=== PATIENT | male | born 1980 | race Caucasian/White ===

== ENCOUNTER → 2017-01-05 | Outpatient (CLI) | payer MEDICARE, MEDICAID ==
--- NOTE | 2017-01-05 09:37 | XCELERA REPORT ---
[address] [address] Upper Extremity Venous Evaluation Name: EUGENE FLOR JR Age: 36 yrs Gender: Male : 1980 Patient Status: Preadmit Patient Location: Study Date: 01/05/2017 08:51 AM Procedure: Unilateral duplex scan of the left upper extremity veins was performed, including responses to compression and other maneuvers. Reason For Study: LEFT IJV DVT Ordering Physician: FELIX ERICKSON Performed By: Amanda Agosto Left Sided Venous Evaluation Normal vessel filling wall to wall, compression and augmentation as well as Colour flow down to the forearm veins. Interpretation Summary Normal compression, patency, spontaneous and phasic flow of the left upper extremity veins. : FELIX ERICKSON > Pradeep Hale
== END ==
LOC: SP 08:43
PROVIDERS: ATTEND Surgery
DX: I82.409 Acute embolism and thrombosis of unspecified deep veins of unspecified lower extremity (principal)
CPT/HCPCS: 93971

== ENCOUNTER → 2017-02-26 | Outpatient (CLI) | payer MEDICAID, MEDICARE | LOC: RAD 08:05 | PROVIDERS: ATTEND Internal Medicine | DX: C20 Malignant neoplasm of rectum (principal); R91.1 Solitary pulmonary nodule | CPT/HCPCS: 71260; 74177 ==

== ENCOUNTER → 2017-03-22 | Outpatient (CLI) | payer MEDICARE, MEDICAID | LOC: RAD 18:20 | PROVIDERS: ATTEND Internal Medicine | DX: C20 Malignant neoplasm of rectum (principal) | CPT/HCPCS: 78815; A9552 ==

== ENCOUNTER → 2017-05-27 | Outpatient (CLI) | payer MEDICARE, MEDICAID | LOC: OD 07:16 | PROVIDERS: ATTEND Radiology Radiation Oncology | DX: C20 Malignant neoplasm of rectum (principal); C77.5 Secondary and unspecified malignant neoplasm of intrapelvic lymph nodes | CPT/HCPCS: 36415; 82378 ==

== ENCOUNTER 2017-06-10 10:26 | Day surgery (SDC) | payer MEDICARE, MEDICAID ==
--- NOTE | 2017-06-03 12:03 | EKG REPORT ---
SEVERITY:- OTHERWISE NORMAL ECG - SINUS RHYTHM LEFT AXIS DEVIATION : Confirmed by: Lila Dean MD 03-Jun-2017 12:02:33
[~2017-06-10 10:26] MED LIST: ACETAMINOPHEN 325 MG TABLET PO PRN; LACTATED RINGERS 1000 ML IV PRN; LIDOCAINE 0.5% INJ-PF (5 MG/ML) 50 ML SDV SUBCUT PRN
[2017-06-10] MEDS ORDERED: MIDAZOLAM 2 MG/2 ML INJ ONE (12:40)
[2017-06-10] MEDS ORDERED: PROPOFOL INJ 200 MG/20 ML VIAL IV ONE (12:41)
[2017-06-10] MEDS ORDERED: MEPERIDINE HCL/PF INJ 25 MG/1 ML DISP.SYRIN IV PRN (14:04)
[2017-06-10] MEDS ORDERED: FENTANYL CITRATE INJ/PF 100 MCG/2 ML AMPUL IV PRN ×3 (14:04)
[2017-06-10] MEDS ORDERED: PROMETHAZINE HCL INJ 25 MG/1 ML VIAL IV PRN ×2 (14:04)
[2017-06-10] MEDS ORDERED: MORPHINE SULFATE 10 MG/ML INJ IV PRN (14:04)
[2017-06-10] MEDS ORDERED: DIPHENHYDRAMINE HCL 50 MG/ML VIAL IV PRN (14:04)
[2017-06-10] MEDS ORDERED: OXYCODONE-ACETAMINOPHEN 5-325 MG TABLET PO PRN ×2 (14:04)
--- NOTE | 2017-06-10 14:31 | Operative Report ---
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 Plan and surgical timeout were conducted The patient was placed in the left lateral decubitus position with knees to chest. A perianal examination was performed. There was no visible or palpable anorectal pathology. Sphincter tone was felt to be normal. The flexible adult colonoscope was advanced through the anal rectal canal, all the way to the cecum. Utilization of the cecum was achieved and the ileocecal valve, the appendiceal orifice and transillumination of the anterior abdominal wall. Of note this was an incomplete bowel prep so there was a significant amount of liquid brown and particulate stool. Approximately 1-1/2 L of saline was used to irrigate, and suction our way through the entire colon. Therefore this would be considered a limited study. However no obvious large tumors or malignancies were identified. Specifically at the colorectal anastomosis which was approximately at 10 cm from the anal verge there was no gross evidence of tumor recurrence. Multiple suture olvin visualized at the anastomosis and photographs taken. One cold forceps biopsy was obtained of the rectal side of the colorectal anastomosis. Of note there was no evidence of stricture but only some narrowing of the anastomosis. Complete visualization of the rectum was achieved with photodocumentation. The scope was withdrawn to the patient's anus. The patient tolerated the procedure well and was taken to the recovery area in stable condition. Because of the limited nature of this colonoscopy, and accelerated surveillance colonoscopy in approximately 6 months is recommended.
--- NOTE | 2017-06-10 14:32 | PDOC DISCHARGE SUMMARY ---
Discharge Summary (SDC) - Discharge Final Diagnosis: History rectosigmoid colon cancer, status post low anterior resection Date of Surgery: 06/10/17 Discharge Date: 06/10/17 Condition: Good Treatment or Instructions: [address] [address] POST ENDOSCOPY DISCHARGE INSTRUCTIONS 1. Diet: Start clear liquids that a regular diet as tolerated. 2. Resume all preoperative medications. All oral anticoagulants and aspirins can be resumed 24 hours after procedure. 3. If a polypectomy was performed some bleeding per rectum may occur. This should stop within 3 days. If not, please contact the office. 4. If you had a colonoscopy you may experience some bloating and delayed return of normal bowel function for several days, your regular bowel movement pattern should resume within a week. 5. Please contact [facility] at to make an appointment with Dr. Mullen for 1 to 3 weeks following procedure. 6. If you have any questions or concerns regarding your care,treatment plan or follow up, please contact our office. 7. Per clinical guidelines we recommend you undergo a repeat colonoscopy in 6 mos. Discharge Diet: As Tolerated Discharge Activity: Activity As Tolerated Home Care Assistance: None Needed Report the Following to Your Physician Immediately: Shortness of Breath, Increase in Pain, Fever over 101 Degrees
[2017-06-10 16:05] VITALS: BP 110/68
== END 2017-06-10 16:00 | disposition home or self-care (01) ==
LOC: END 10:26
PROVIDERS: ATTEND Surgery
PROC: 0DBE8ZX Excision of Large Intestine, Via Natural or Artificial Opening Endoscopic, Diagnostic (ICD-10-PCS; principal; 2017-06-10 12:45)
DX: Z85.048 Personal history of other malignant neoplasm of rectum, rectosigmoid junction, and anus (principal); K63.89 Other specified diseases of intestine; Z80.0 Family history of malignant neoplasm of digestive organs; J45.909 Unspecified asthma, uncomplicated; E53.8 Deficiency of other specified B group vitamins; I73.9 Peripheral vascular disease, unspecified; Z90.49 Acquired absence of other specified parts of digestive tract; Z88.8 Allergy status to other drugs, medicaments and biological substances; Z86.718 Personal history of other venous thrombosis and embolism; Z79.51 Long term (current) use of inhaled steroids
CPT/HCPCS: 45380; 93005; 88305 ×2; 93010; J2250; J2704; 810

== ENCOUNTER 2017-11-25 07:53 | Outpatient (CLI) | payer MEDICARE, MEDICAID ==
[2017-11-25] MEDS ORDERED: NORMAL SALINE 1000 ML 1,000 ML IV PRN (08:04)
[2017-11-25 09:29] VITALS: BP 119/69
== END 2017-11-25 09:28 | disposition home or self-care (01) ==
LOC: II 07:53 → 5TH 07:56 → II 09:28
PROVIDERS: ATTEND Internal Medicine
PROC: 3E0337Z Introduction of Electrolytic and Water Balance Substance into Peripheral Vein, Percutaneous Approach (ICD-10-PCS; principal; 2017-11-25)
DX: E86.0 Dehydration (principal); C20 Malignant neoplasm of rectum
CPT/HCPCS: 96360

== ENCOUNTER → 2017-11-26 | Outpatient (CLI) | payer MEDICARE, MEDICAID ==
--- NOTE | 2017-11-26 12:38 | RADIOLOGY REPORT (SQ) ---
EXAM DESCRIPTION: CT HEAD WITH COMPLETED DATE/TIME: 11/26/2017 11:40 am REASON FOR STUDY: HEADACHE C20 MALIGNANT NEOPLASM OF RECTUM R51 HEADACHE COMPARISON: None. TECHNIQUE: Axial images acquired through the brain with intravenous contrast. Images reviewed with b one, brain and subdural windows. Images stored on PACS. All CT scanners at this facility use dose modulation, iterative reconstruction, and/or weight based d osing when appropriate to reduce radiation dose to as low as reasonably achievable (ALARA). [facility]: Dose Right [facility]: CareDose [facility]: Dose Right [facility]: Teradose 4D [facility]: [employer] [facility] CONTRAST TYPE AND DOSE: 74 mL Isovue 370- low osmolar. RENAL FUNCTION: None required. The patient is less than 50 years old. RADIATION DOSE: CT Rad equipment meets quality standard of care and radiation dose reduction techniq ues were employed. CTDIvol: 49.0 mGy. DLP: 979 mGy-cm.. LIMITATIONS: None. FINDINGS: In the right hemisphere near the sylvian fissure, a brain parenchymal metastatic lesion is present with peripheral rim enhancement measuring 3.3 cm in greatest diameter. There is significant local mass effect and surrounding vasogenic edema throughout the temporal and fr ontal lobe on the right. Overall, there is 1.5 cm of right to left subfalcine shift. There is effac ement of the right lateral ventricle. The right temporal lobe uncus bulges medially, with effacement of the right perimesencephalic cistern. There is evidence of early entrapment of the left lateral ventricle, with dilatation of the left temp oral horn, and subependymal CSF in the left occipital lobe. No other enhancing brain parenchymal metastatic lesions are present. No acute intracranial hemorrhage. No CT evidence of acute large territory ischemic change. Paranasal sinuses clear. Bony structures unremarkable. This report was discussed with Dr. Knight 11/26/2017, 1130 hours IMPRESSION: Right frontotemporal brain metastatic lesion with significant surrounding vasogenic tico a and local mass effect, with right to left subfalcine shift. EVIDENCE OF ACUTE STROKE: NO. COMMENT: Pertinent findings on the imaging study reported as a CRITICAL RESULT to LINO KNIGHT MD at11:30 on 11/26/2017. Category of Critical Result: Brain mass with midline shift TECHNICAL DOCUMENTATION: JOB ID: [id number] Quality ID # [id number]: Final reports with documentation of one or more dose reduction techniques (e.g., Au tomated exposure control, adjustment of the mA and/or kV according to patient size, use of iterative reconstruction technique) 2010 [employer]- All Rights Reserved
--- NOTE | 2017-11-26 12:45 | RADIOLOGY REPORT (SQ) ---
EXAM DESCRIPTION: CT CHEST WITH; CT ABD/PELVIS WITH IV ONLY COMPLETED DATE/TIME: 11/26/2017 11:40 am REASON FOR STUDY: RECTAL CA C20 MALIGNANT NEOPLASM OF RECTUM R51 HEADACHE COMPARISON: PET-CT 03/22/2017 CT chest abdomen and pelvis 02/26/2017, 01/25/2016 CONTRAST TYPE AND DOSE: contrast/concentration: Isovue 370.00 mg/ml; Total Contrast Delivered: 74.0 ml; Total Saline Delivered: 64.9 ml RENAL FUNCTION: Creatinine 1.3 TECHNIQUE: CT scan of the chest performed using helical scanning technique with dynamic intravenous contrast injection. Images reviewed with lung, soft tissue and bone windows. Reconstructed coronal a nd sagittal MPR images reviewed. All images stored on PACS. CT scan of the abdomen and pelvis performed with intravenous and without oral contrastusing helical s emre technique with dynamic intravenous contrast injection. Images reviewed with lung, soft tissu e and bone windows. Reconstructed coronal and sagittal MPR images reviewed. Delayed images for eval uation of the urinary system also acquired and evaluated. All images stored on PACS. All CT scanners at this facility use dose modulation, iterative reconstruction, and/or weight based d osing when appropriate to reduce radiation dose to as low as reasonably achievable (ALARA). [facility]: Dose Right [facility]: CareDose [facility]: Dose Right [facility]: Teradose 4D [facility]: [employer] RADIATION DOSE: CT Rad equipment meets quality standard of care and radiation dose reduction techniq ues were employed. CTDIvol: 4.8 - 5.2 mGy. DLP: 770 mGy-cm. . LIMITATIONS: None. FINDINGS: CHEST: LUNGS AND PLEURA: The 9 to 10 mm lingular nodule identified 03/22/2017 has been treated with radiation therapy. In the lingula, today's images demonstrate radiotherapy treatment markers and bandlike scar ring on axial images 69-73. No other lung nodules are identified. No pleural effusion. No pneumothorax. HILAR AND MEDIASTINAL STRUCTURES: No identified masses or abnormal nodes. HEART AND VASCULAR STRUCTURES: No aneurysm or dissection. No central pulmonary emboli. No pericardi al effusion. HARDWARE: None. THYROID AND OTHER SOFT TISSUES: No masses. No adenopathy. BONES: No significant finding. OTHER: No other significant finding. ABDOMEN AND PELVIS: LIVER: Normal size. No masses. No dilated ducts. SPLEEN: Normal size. No focal lesions. PANCREAS: No masses. No significant calcifications. No adjacent inflammation or peripancreatic fluid collections. Pancreatic duct not dilated. GALLBLADDER: No identified stones by CT criteria. No inflammatory changes to suggest cholecystitis. ADRENAL GLANDS: No significant masses or asymmetry. RIGHT KIDNEY AND URETER: No solid masses. No significant calcification. No hydronephrosis or hydroure ter. LEFT KIDNEY AND URETER: No solid masses. No significant calcification. No hydronephrosis or hydrouret er. AORTA AND VESSELS: No aneurysm. No dissection. Renal arteries, SMA, celiac without stenosis. RETROPERITONEUM: No retroperitoneal adenopathy, hemorrhage or masses. BOWEL AND PERITONEAL CAVITY: No masses or inflammatory changes. No free fluid or peritoneal masses. APPENDIX: Normal. ABDOMINAL WALL: No masses. No hernias. BONES: No significant or acute findings. PELVIS: There is a row of rectosigmoid anastomotic olvin axial image 78. No pelvic mass or adenopa thy. IMPRESSION: Post radiation therapy treatment change in the lingula. No CT evidence of metastatic disease elsewhere in the chest abdomen or pelvis. Findings discussed with Dr. Henderson, 1130 hours, 11/26/2017 TECHNICAL DOCUMENTATION: JOB ID: [id number] Quality ID # 436: Final reports with documentation of one or more dose reduction techniques (e.g., Au tomated exposure control, adjustment of the mA and/or kV according to patient size, use of iterative reconstruction technique) 2010 [employer]- All Rights Reserved
== END ==
LOC: RAD 10:31
PROVIDERS: ATTEND Internal Medicine
DX: C20 Malignant neoplasm of rectum (principal); R51 Headache
CPT/HCPCS: 70460; 71260; 74177

== ENCOUNTER → 2018-03-05 | Outpatient (CLI) | payer MEDICARE, MEDICAID ==
--- NOTE | 2018-03-05 09:04 | RADIOLOGY REPORT (SQ) ---
EXAM DESCRIPTION: CT CHEST WITH COMPLETED DATE/TIME: 03/05/2018 8:50 am REASON FOR STUDY: RECTAL CA (C20), SECONDARY BRAIN CA (C79.31) C20 MALIGNANT NEOPLASM OF RECTUM C79 .31 SECONDARY MALIGNANT NEOPLASM OF BRAIN COMPARISON: 11/26/2017 and 02/26/2017. TECHNIQUE: CT scan of the chest performed using helical scanning technique with dynamic intravenous contrast injection. Images reviewed with lung, soft tissue and bone windows. Reconstructed coronal and sagittal MPR images reviewed. All images stored on PACS. All CT scanners at this facility use dose modulation, iterative reconstruction, and/or weight based d osing when appropriate to reduce radiation dose to as low as reasonably achievable (ALARA). [facility]: Dose Right [facility]: CareDose [facility]: Dose Right [facility]: Teradose 4D [facility]: [employer] CONTRAST TYPE AND DOSE: 79 mL Isovue 370- low osmolar. RENAL FUNCTION: None required. The patient is less than 50 years old. RADIATION DOSE: CT Rad equipment meets quality standard of care and radiation dose reduction techniq ues were employed. CTDIvol: 4.5 - 5.3 mGy. DLP: 664 mGy-cm. . LIMITATIONS: None. FINDINGS: LUNGS AND PLEURA: Radiotherapy markers in the lingula. Increasing nodular masslike appear ance, now measuring 2.8 x 3.2 x 3.5 cm. Lungs otherwise clear. No other pulmonary nodules or masses . No pleural effusion or pleural thickening. HILAR AND MEDIASTINAL STRUCTURES: No identified masses or abnormal nodes. HEART AND VASCULAR STRUCTURES: No aneurysm or dissection. No central pulmonary emboli. No pericardi al effusion. HARDWARE: Radiotherapy markers. UPPER ABDOMEN: See separate report of the CT of the abdomen. THYROID AND OTHER SOFT TISSUES: No masses. No adenopathy. BONES: No significant finding. OTHER: No other significant finding. IMPRESSION: RADIOTHERAPY MARKERS IN THE LINGULA. INCREASING NODULAR MASSLIKE APPEARANCE IN THIS ARE A, SUSPICIOUS FOR PROGRESSION OF DISEASE. IF CLINICALLY INDICATED, MAY CONSIDER PET SCAN FOR FURTHER EVALUATION. TECHNICAL DOCUMENTATION: JOB ID: [id number] Quality ID # 436: Final reports with documentation of one or more dose reduction techniques (e.g., Au tomated exposure control, adjustment of the mA and/or kV according to patient size, use of iterative reconstruction technique) 2010 [employer]- All Rights Reserved Reading location - IP/workstation name: [email or web address]
--- NOTE | 2018-03-05 09:10 | RADIOLOGY REPORT (SQ) ---
EXAM DESCRIPTION: CT ABD/PELVIS WITH IV ORAL COMPLETED DATE/TIME: 03/05/2018 8:51 am REASON FOR STUDY: RECTAL CA (C20), SECONDARY BRAIN CA (C79.31) C20 MALIGNANT NEOPLASM OF RECTUM C79 .31 SECONDARY MALIGNANT NEOPLASM OF BRAIN COMPARISON: 02/26/2017 and 01/25/2016. TECHNIQUE: CT scan of the abdomen and pelvis performed using helical scanning technique with dynamic intravenous contrast injection. No oral contrast. Images reviewed with lung, soft tissue, and bone windows. Reconstructed coronal and sagittal MPR images reviewed. Delayed images for evaluation of the urinary system also acquired. All images stored on PACS. All CT scanners at this facility use dose modulation, iterative reconstruction, and/or weight based d osing when appropriate to reduce radiation dose to as low as reasonably achievable (ALARA). [facility]: Dose Right [facility]: CareDose [facility]: Dose Right [facility]: Teradose 4D [facility]: [employer] CONTRAST TYPE AND DOSE: contrast/concentration: Isovue 370.00 mg/ml; Total Contrast Delivered: 79.0 ml; Total Saline Delivered: 68.0 ml RENAL FUNCTION: None required. The patient is less than 50 years old. RADIATION DOSE: . LIMITATIONS: None. FINDINGS: LOWER CHEST: See separate report of the CT of the chest. LIVER: New low-attenuation lesion in the right lobe of the liver measuring 1 cm (axial series 3, imag e 21). Similar smaller fainter low-attenuation lesions also seen on image 14. No dilated ducts. SPLEEN: Normal size. No focal lesions. PANCREAS: No masses. No significant calcifications. No adjacent inflammation or peripancreatic fluid collections. Pancreatic duct not dilated. GALLBLADDER: No identified stones by CT criteria. No inflammatory changes to suggest cholecystitis. ADRENAL GLANDS: No significant masses or asymmetry. RIGHT KIDNEY AND URETER: No solid masses. No significant calcifications. No hydronephrosis or hyd roureter. LEFT KIDNEY AND URETER: No solid masses. No significant calcifications. No hydronephrosis or hydr oureter. AORTA AND VESSELS: No aneurysm. No dissection. Renal arteries, SMA, celiac without stenosis. RETROPERITONEUM: No retroperitoneal adenopathy, hemorrhage or masses. BOWEL AND PERITONEAL CAVITY: No masses or inflammatory changes. No free fluid or peritoneal masses. APPENDIX: Surgically absent. PELVIS: Stable surgical changes in the rectum. No mass. No free fluid. Normal bladder. ABDOMINAL WALL: No masses. No hernias. BONES: No significant or acute findings. OTHER: No other significant finding. IMPRESSION: 1. NEW LOW-ATTENUATION LESIONS IN THE LIVER SUSPICIOUS FOR METASTASES. 2. NO OTHER SIGNIFICANT OR ACUTE FINDING IN THE ABDOMEN OR PELVIS ON CT SCAN WITH IV CONTRAST. TECHNICAL DOCUMENTATION: JOB ID: [id number] Quality ID # 436: Final reports with documentation of one or more dose reduction techniques (e.g., Au tomated exposure control, adjustment of the mA and/or kV according to patient size, use of iterative reconstruction technique) 2010 [employer] All Rights Reserved Reading location - IP/workstation name: [email or web address]
== END ==
LOC: RAD 08:09
PROVIDERS: ATTEND Internal Medicine
DX: C20 Malignant neoplasm of rectum (principal); C79.31 Secondary malignant neoplasm of brain
CPT/HCPCS: 71260; 74177